=== PATIENT | male | born 1985 | race Caucasian/White ===

== ENCOUNTER 2017-07-10 17:44 | Emergency (ER) | payer OTHER ==
[~2017-07-10] VITALS: Ht 180.3 cm; Wt 95.6 kg
[2017-07-10 17:57] VITALS: TEMP 37.5; Ht 180.3 cm; Wt 95.6 kg
--- NOTE | 2017-07-10 18:16 | EMERGENCY ROOM VISIT NOTE ---
ED Visit Note First contact with patient: 17:59 Resident Physician Supervision Note: I was present with Dr. Grider during the history and exam. I discussed the case with the resident and agree with the findings and plan as documented in the note. Any exceptions or clarifications are listed here: Documented By: Asad Gallegos
[2017-07-10] MEDS ORDERED: LEVOFLOXACIN 250 MG TAB PO ONE (18:30)
[2017-07-10] MEDS ORDERED: IBUP-103 PO (19:54)
--- NOTE | 2017-07-10 19:59 | EMERGENCY ROOM VISIT NOTE ---
History First contact with patient: 17:59 Chief Complaint: GROIN PAIN Stated Complaint: GROIN PAIN History of Present Illness The patient is a 32 year old male who presents to the Emergency Room with complaints of testicular pain. The pain started on Monday when he was playing cards with his friends. He notes the pain is in his right testicle. He says the pain radiates to towards his R groin. He has taken advil for the pain but this has not resolved the pain. He denies any trauma to the testicle. Associated symptoms include swelling of the testicle. He denies any dysuria, penile discharge, hematuria, fevers, chills, fatigue, nausea, vomiting, decreased appetite. He has never had similar symptoms. Review of Systems CONSTITUTIONAL: No fever, chills, sweats or night sweats. No recent infections. No weight loss or weight gain. NEUROLOGIC: No headaches, dizziness or syncopal episodes. HEENT: No hearing or visual changes. No sinus or nasal issues. No mouth sores, thrush or oral lesions. CARDIOVASCULAR: No chest pain or palpitations. RESPIRATORY: No SOB, dyspnea, cough or hemoptysis. GASTROINTESTINAL: No nausea, vomiting, diarrhea, constipation, reflux, melena or hematochezia. GENITOURINARY: No dysuria, frequency, urgency, incontinence or hematuria. SKIN: No rashes or skin lesions. No hair loss or nail changes. HEMATOLOGIC: No bleeding or abnormal bruising Past Medical/Surgical History Hernia when he was 4 years old Social History Smoking Status: Never Smoker Alcohol Use: occasionally Drug Use: none Marital Status: Housing Status: lives with significant other Occupation Status: employed Current/Historical Medications Scheduled Levofloxacin (Levaquin), 500 MG PO DAILY Scheduled PRN Ibuprofen Tab (Advil), 200-600 MG PO TID PRN for Pain Physical Exam Vital Signs Date Time Temp Pulse Resp B/P (MAP) Pulse Ox O2 Delivery O2 Flow Rate FiO2 07/10/17 19:50 90 18 135/71 98 Room Air 07/10/17 17:57 37.5 90 20 137/76 100 Room Air Physical Exam : Right testicle elevated, swollen, erythematous and tender to palpation. No pain to palpation of epididymis. Left testicle normal appearing. No bulge in R groin with cough Heart: Regular rate and rhythm. There is a normal S1 and S2 with no murmurs, clicks, or gallops appreciated. Lungs: Clear to auscultation bilaterally with no wheezes, rales, or rhonchi. Abdomen: Soft, completely nontender, nondistended, with good bowel sounds. There are no palpable pulsatile masses or hepatosplenomegaly. There is no guarding, rigidity, or rebound noted. Extremities: No evidence of cyanosis, clubbing, or edema. There are easily palpable peripheral pulses. Medical Decision & Procedures Laboratory Results Test 07/10/17 18:30 Urine Color YELLOW Urine Appearance CLEAR (CLEAR) Urine pH 8.0 (4.5-7.5) Urine Specific [place] 1.022 (1.000-1.030) Urine Protein TRACE (NEG) Urine Glucose (UA) NEG (NEG) Urine Ketones NEG (NEG) Urine Occult Blood 1+ (NEG) Urine Nitrite NEG (NEG) Urine Bilirubin NEG (NEG) Urine Urobilinogen NEG (NEG) Urine Leukocyte Esterase MODERATE (NEG) Urine WBC (Auto) >30 /hpf (0-5) Urine RBC (Auto) 10-30 /hpf (0-4) Urine Hyaline Casts (Auto) 1-5 /lpf (0-5) Urine Epithelial Cells (Auto) 20-30 /lpf (0-5) Urine Bacteria (Auto) NEG (NEG) Medications Administered Medications (Trade) Dose Ordered Sig/Елена Route Start Time Stop Time Status Last Admin Dose Admin Levofloxacin (Levaquin Tab) 500 mg NOW ONCE PO 07/10/17 18:30 07/10/17 18:31 DC 07/10/17 18:51 500 MG ED Course 1820: patient was seen and examined by myself 1840: I discussed the case with Dr. Gallegos. It was decided to order a testicular ultrasound as well as a UA. Patient was started on levaquin PO 2144: US results showed Epididymo-orchitis and mild hydrocele of the left testicle. Patient was informed of the results and was sent home on 500mg levaquin for 9 days to finish a 10 day course. Patient will be following with PCP and was in agreement with the plan Medical Decision Patient is a 32 year old male with acute onset R sided testicular pain and swelling. He had an US which showed Epididymo-orchitis and mild L sided hydrocele. Due to a low risk of STI's it was decided to put the patient on levaquin 500mg for 10 day course. He will also be taking ibuprofen 400mg q6 as needed for pain. He was also advised to keep the testicle elevated. He will be following up with his PCP in the next 3-4 days. Impression Primary Impression: Epididymoorchitis Departure Information Dispostion Home / Self-Care Condition GOOD Prescriptions Levofloxacin (Levaquin) 500 Mg Tab 500 MG PO DAILY for 9 Days, #9 TAB Prov: Sivakumar Grider MD 07/10/17 Referrals Kristopher Goodman M.D. (PCP) Patient Instructions My [facility] Resident Tracking Resident Involvement: Resident Care Provided Care Provided: Adult ED
--- NOTE | 2017-07-10 20:28 | DIAGNOSTIC IMAGING REPORT ---
(TESTICULAR) SCROTUM-CONT CLINICAL HISTORY: 32 years-old Male with Sudden onset R testicular pain. Acute right scrotal pain COMPARISON STUDY: None available TECHNIQUE: Real-time, grayscale, and color Doppler sonography of the testes and scrotum is performed. Images are reviewed in the transverse and longitudinal planes. FINDINGS: RIGHT HEMISCROTUM: The right testis measures 5.0 x 3.6 x 2.5 cm and the parenchyma appears mildly heterogeneous with hyperemia. No intratesticular mass is seen. Normal-appearing arterial inflow is present within the right testicle. The right epididymis appears enlarged, heterogeneous and hyperemic. No varicocele or hydrocele is identified. Noted abnormality identified within the right inguinal canal. LEFT HEMISCROTUM: The left testis measures 4.6 x 3.4 x 2.3 cm and the parenchyma appears unremarkable. No intratesticular mass is seen. Normal-appearing arterial inflow is present within the left testicle. The left epididymal head appears normal. Small left-sided hydrocele and varicocele are noted. IMPRESSION: 1. Findings compatible with right-sided epididymoorchitis. 2. No evidence of testicular mass lesion or testicular torsion. 3. Small left-sided varicocele and hydrocele. The above report was generated using voice recognition software. It may contain grammatical, syntax or spelling errors. Electronically signed by: Abdirashid Gilman M.D. 07/10/2017 8:26 PM Dictated Date/Time: 07/10/2017 8:24 PM
[2017-07-10] MEDS ORDERED: LEVO1TAB33 PO (20:49)
[2017-07-10 21:01] VITALS: BP 127/74; PULSE 81; O2SAT 99
== END 2017-07-10 21:09 | disposition home or self-care (01) ==
LOC: C.EDB 17:45 → C.EDA 21:09
DX: N45.3 Epididymo-orchitis (principal)